=== PATIENT | male | born 1940 | race Caucasian/White ===

== ENCOUNTER → 2017-11-13 | Outpatient (CLI) | payer MEDICARE ==
[2017-11-13 11:18] LABS: BASOPHILS # (AUTO) 0.02 x10^3/uL (0-0.1); BASOPHILS % (AUTO) 0 % (0-1); EOSINOPHILS # (AUTO) 0.06 x10^3/uL (0-0.4); EOSINOPHILS % (AUTO) 1 % (1-7); LYMPHOCYTES # (AUTO) 1.57 x10^3/uL (1-3.4); LYMPHOCYTES % (AUTO) 22 % (22-44); MD NO; MEAN CORPUSCULAR HGB CONC 33.1 g/dL (33.2-36.2); MEAN CORPUSCULAR VOLUME 96.7 fL (81-97); MEAN PLATELET VOLUME 7.8 fL (7.4-10.4); MONOCYTES # (AUTO) 0.78 x10^3/uL (0.2-0.8); MONOCYTES % (AUTO) 11 % (2-9); NEUTROPHILS # (AUTO) 4.85 x10^3/uL (1.8-6.8); NEUTROPHILS % (AUTO) 67 % (42-75); PLATELET COUNT 284 x10^3/uL (130-400); RED BLOOD COUNT 4.52 x10^6/uL (4.38-5.82); RED CELL DISTRIBUTION WIDTH 12.8 % (9.4-14.8)
[2017-11-13 11:25] LABS: INTERNATIONAL NORMALIZED RATIO 0.98 (0.93-1.1); PROTHROMBIN TIME 10.2 Seconds (9.6-11.5)
[2017-11-13 11:38] LABS: ALANINE AMINOTRANSFERASE 27 U/L (12-78); ANION GAP 9 mmol/L (5-15); CALCIUM 9.1 mg/dL (8.5-10.1); CHLORIDE 104 mmol/L (98-107); CREATININE 0.87 mg/dL (0.7-1.3)
[2017-11-13 11:40] LABS: ALKALINE PHOSPHATASE 48 U/L (45-117); BILIRUBIN,TOTAL 0.6 mg/dL (0.2-1.0); TOTAL PROTEIN 7.7 g/dL (6.4-8.2)
[2017-11-13 12:43] LABS: HEMOGLOBIN A1C 5.8 % (4.2-6.3)
== END | disposition home or self-care (01) ==
LOC: STAR 09:44
PROVIDERS: ATTEND Orthopaedic Surgery
DX: Z01.818 Encounter for other preprocedural examination (principal); M16.12 Unilateral primary osteoarthritis, left hip; R79.89 Other specified abnormal findings of blood chemistry
CPT/HCPCS: 36415; 80053; 83036; 85025; 85610; 85730; 87081; 93005

== ENCOUNTER 2017-11-21 09:50 | Inpatient (IN) | payer MEDICARE ==
[~2017-11-21] VITALS: Ht 172.7 cm; Wt 95.0 kg
[~2017-11-21 09:50] MED LIST: AMLO5TAB4 PO; ASPI-496 PO; ATOR20TA9 PO; EPINEPHRINE 1 MG/ML, 1ML ONE; INDO50CA PO; KETOROLAC 60 MG/2 ML ONE; LISI-170 PO; ROPIvacaine/PF 0.2% , 100 ML ONE; SODIUM CHLORIDE 0.9% 100 ML ONE; TRANEXAMIC ACID 100 MG/ML, 10ML ONE
[2017-11-21] MEDS ORDERED: VANCOMYCIN PER PHARMACY MC ONE (10:16)
[2017-11-21] MEDS ORDERED: GABAPENTIN 300 MG CAPSULE PO ONE (10:16)
[2017-11-21] MEDS ORDERED: OxyconTIN ER 10 MG TAB.ER PO ONE (10:16)
[2017-11-21] MEDS ORDERED: PHARMACOKINETIC CONSULTATION MC ONE (10:30)
[2017-11-21] MEDS ORDERED: VANCOMYCIN 1,800 MG in SODIUM CHLORIDE 0.9% 250 ML IV ONE (10:30)
[2017-11-21] MEDS ORDERED: LACTATED RINGERS 1,000 ML IV SCH (10:30)
[2017-11-21] MEDS ORDERED: ACETAMINOPHEN 500 MG TABLET PO ONE (10:30)
[2017-11-21 10:57] VITALS: BP 145/88
[2017-11-21] MEDS ORDERED: MIDAZOLAM 1 MG/ML, 2ML ONE (11:00)
[2017-11-21] MEDS ORDERED: FENTANYL PF 250 MCG/5ML ONE (11:01)
[2017-11-21] MEDS ORDERED: ACET-76 PO (11:02)
[2017-11-21] MEDS ORDERED: PROPOFOL 10 MG/ML, 20ML ONE (11:56)
[2017-11-21] MEDS ORDERED: ONDANSETRON 2MG/ML, 2ML ONE (11:56)
[2017-11-21] MEDS ORDERED: CEFAZOLIN 1,000 MG ONE (11:56)
[2017-11-21] MEDS ORDERED: DEXAMETHASONE 4 MG/ML, 1ML ONE (11:56)
[2017-11-21] MEDS: NS + 20MEQ KCL 1,000 ML IV SCH (12:03)
[2017-11-21] MEDS ORDERED: LIDOCAINE-MPF 2% ,5ML ONE (12:27)
[2017-11-21] MEDS ORDERED: EPHEDRINE 50 MG/ML, 1ML ONE (12:27)
[2017-11-21] MEDS ORDERED: SUCCINYLCHOLINE 20 MG/ML, 10ML ONE (12:27)
[2017-11-21] MEDS ORDERED: ONDANSETRON 2MG/ML, 2ML IV PRN (12:30)
[2017-11-21] MEDS ORDERED: ACETAMINOPHEN 650 MG/20.3 ML UDC PO PRN (12:30)
[2017-11-21] MEDS ORDERED: SENNA/DOCUSATE TABLET PO PRN (12:30)
[2017-11-21] MEDS: CEFAZOLIN PMX 2GM/50ML 50 ML IVPB SCH ×2 (12:30→20:58)
[2017-11-21] MEDS ORDERED: DIPHENHYDRAMINE 50 MG CAPSULE PO PRN (12:30)
[2017-11-21] MEDS ORDERED: HYDROcodone/APAP 5/325 TABLET PO PRN (12:30)
[2017-11-21] MEDS ORDERED: ONDANSETRON 4 MG TABLET PO PRN (12:30)
[2017-11-21] MEDS ORDERED: OXYcodone IR 5MG TABLET PO PRN (12:30)
[2017-11-21] MEDS ORDERED: MAGNESIUM HYDROXIDE 8%, 30ML UDC PO PRN (12:30)
[2017-11-21] MEDS ORDERED: BISACODYL 10 MG SUPP PR PRN (12:30)
[2017-11-21] MEDS ORDERED: ZOLPIDEM 5MG TABLET PO PRN (12:30)
[2017-11-21] MEDS ORDERED: SCOPOLAMINE PATCH, 1.5MG PATCH.TD72 TD ONE (12:30)
[2017-11-21] MEDS ORDERED: VANCOMYCIN 1,000 MG ONE (13:53)
[2017-11-21] MEDS ORDERED: MEPERIDINE/PF 25MG/0.5ML IVPush PRN (14:00)
[2017-11-21] MEDS ORDERED: OXYcodone 5 MG/5 ML ORAL.SOL UDC PO PRN (14:00)
[2017-11-21] MEDS ORDERED: ONDANSETRON 2MG/ML, 2ML IVPush PRN (14:00)
[2017-11-21] MEDS ORDERED: LABETALOL 5MG/ML, 20ML IV PRN (14:00)
[2017-11-21] MEDS ORDERED: hydrALAzine 20 MG/ML, 1ML IV PRN (14:00)
[2017-11-21] MEDS ORDERED: FENTANYL PF 100 MCG/2ML IV PRN (14:00)
[2017-11-21] MEDS ORDERED: HYDROmorphone 1 MG/ML, 1ML IV PRN (14:00)
[2017-11-21] MEDS ORDERED: ACETAMINOPHEN 325 MG TABLET PO PRN (14:00)
[2017-11-21] MEDS ORDERED: PROMETHAZINE 25 MG/ML, 1ML IV PRN (14:00)
[2017-11-21] MEDS ORDERED: ACETAMINOPHEN 650 MG/20.3 ML UDC ONE (14:25)
[2017-11-21] MEDS ORDERED: OXYcodone 5 MG/5 ML ORAL.SOL UDC ONE (14:25)
[2017-11-21 15:05] VITALS: BP 112/66
[2017-11-21 20:24] VITALS: BP 94/57
[2017-11-21] MEDS: DOCUSATE 100 MG CAPSULE PO SCH (20:58)
[2017-11-21] MEDS: ASPIRIN 81 MG TABLET EC PO SCH (20:58)
[2017-11-21] MEDS ORDERED: ATORVASTATIN 20 MG TABLET PO SCH (21:00)
[2017-11-22] VITALS: BP 99/60
[2017-11-22] MEDS: NS + 20MEQ KCL 1,000 ML IV SCH (00:33)
[2017-11-22] MEDS ORDERED: OXYC-302 PO (02:13)
[2017-11-22] MEDS ORDERED: TRAM50TA2 PO (02:14)
[2017-11-22] MEDS ORDERED: ONDA4TAB7 PO (02:15)
[2017-11-22] MEDS ORDERED: MELO7.5T31 PO (02:15)
[2017-11-22 04:00] VITALS: BP 110/69
[2017-11-22] MEDS ORDERED: CEFAZOLIN PMX 2GM/50ML 50 ML IVPB SCH (04:30)
[2017-11-22] MEDS ORDERED: DEXAMETHASONE 4 MG/ML, 1ML IVPush SCH (06:00)
[2017-11-22] MEDS: ASPIRIN 81 MG TABLET EC PO SCH (06:39)
[2017-11-22 07:36] VITALS: BP 116/75
[2017-11-22] MEDS: DOCUSATE 100 MG CAPSULE PO SCH (08:52)
[2017-11-22] MEDS ORDERED: LISINOPRIL 20 MG TABLET PO SCH (09:00)
[2017-11-22] MEDS ORDERED: AMLODIPINE 5 MG TABLET PO SCH (09:00)
[2017-11-22] MEDS ORDERED: ASPI-496 PO (10:38)
[2017-11-22] MEDS ORDERED: OXYC5CAP2 PO (10:40)
[2017-11-22 11:37] VITALS: BP 143/72
== END 2017-11-22 11:45 | disposition home or self-care (01) | DRG 470 ==
LOC: ORIP 09:52 → 4NOR 15:38
PROVIDERS: ADMIT Orthopaedic Surgery; ATTEND Orthopaedic Surgery
PROC: 0SRB06A Replacement of Left Hip Joint with Oxidized Zirconium on Polyethylene Synthetic Substitute, Uncemented, Open Approach (ICD-10-PCS; principal; 2017-11-21 12:15)
DX: M16.12 Unilateral primary osteoarthritis, left hip (principal)
CPT/HCPCS: 36415; 72170; 76000; 85014; 85018; 86850; 86900; C1713; J0171; J0690; J1100; J1885; J2250; J2405; J2704; J2795; J3010; J3370; J3490; C1776; J0330; J7050; J7120